=== PATIENT | male | born 1965 | race African-American/Black ===

== ENCOUNTER 2021-03-09 17:57 | Emergency (ER) | payer BC | END 2021-03-09 19:00 | disposition home or self-care (01) | LOC: CSHERS 17:57 | DX: Z48.02 Encounter for removal of sutures (principal) ==

== ENCOUNTER 2023-09-05 15:34 | Emergency (ER) | payer BC, SELFPAY ==
[2023-09-05 16:53] LABS: Hematocrit 19.6 % (38.8-50.0); Hemoglobin 6.5 g/dL (13.5-17.5); Mean Corpuscular HGB CONC 33.2 g/dL (32.0-36.0); Mean Corpuscular Hemoglobin 29.8 pg (27.0-33.0); Mean Corpuscular Volume 89.9 fL (81.2-95.1); Mean Platelet Volume 9.3 fL (7.4-10.4); Platelet Count 217 10x3/uL (150-450); RBC Distribution Width 15.6 % (11.5-14.5); Red Blood Cell (RBC) Count 2.18 10x6/uL (4.32-5.72); White Blood Cell (WBC) Count 4.1 10x3/uL (3.5-10.5)
[2023-09-05 16:55] LABS: ALT (SGPT) 33 U/L (8-55); AST (SGOT) 88 U/L (5-34); Albumin 2.7 g/dL (3.5-5.0); Alkaline Phosphatase 56 U/L (40-110); Anion Gap 12 mmol/L (10-20); BUN (Urea Nitrogen) 17 mg/dL (8.4-25.7); Bilirubin, Total 1.2 mg/dL (0.2-1.2); Calc. Creatinine Clearance 0 mL/min (70-130); Calcium 9.2 mg/dL (7.8-10.44); Carbon Dioxide 24 mmol/L (22-29); Chloride 105 mmol/L (98-107); Estimated GFR 99; Globulin 4.6 g/dL (2.4-3.5); Glucose 133 mg/dL (70-105); Potassium 3.7 mmol/L (3.5-5.1); Protein, Total 7.3 g/dL (6.0-8.3); Sodium 137 mmol/L (136-145)
[2023-09-05] MEDS ORDERED: Ondansetron PF 4 MG/2 ML Vial ONE (17:10)
[2023-09-05] MEDS ORDERED: Pantoprazole 40 MG VIAL ONE (17:10)
[2023-09-05 17:57] LABS: Eosinophils 2 % (0-10); Lymphocytes 27 % (21-51); Monocytes 23 % (0-10)
[2023-09-05 17:58] LABS: Neutrophil 48 % (42-75)
[2023-09-05 18:01] LABS: RBC Morph Comment Within Normal Limits
[2023-09-05 18:02] LABS: Platelet Adequacy Comment Appears Adequate
[2023-09-05 18:03] LABS: MDiff Complete? YES
[2023-09-05] MEDS ORDERED: Pantoprazole 80 MG, Admixture Fee 1 EACH in Sodium Chloride 0.9% 100 ML IVPB SCH (18:30)
== END 2023-09-05 19:12 | disposition short-term general hospital (02) ==
LOC: CSHERS 15:34
DX: K92.2 Gastrointestinal hemorrhage, unspecified (principal); D64.9 Anemia, unspecified
CPT/HCPCS: 71045; 80053; 83690; 85025; 86850; 86900; 86901; 86922; 93005; 96374; 96375; 96376; C9113; J2405; J3490